=== PATIENT | male | born 1985 | race Caucasian/White ===

== ENCOUNTER 2016-10-24 20:18 | Emergency (ER) | payer BC ==
[~2016-10-24] VITALS: Ht 172.7 cm; Wt 97.7 kg
[2016-10-24 20:21] VITALS: BP 151/87; TEMP 98.4
[2016-10-24] MEDS ORDERED: PRINIVIL20 MG PO (21:45)
[2016-10-24] MEDS ORDERED: HCTZ12.5TAB PO (21:45)
[2016-10-24] MEDS ORDERED: BACTRIM DS 8001 TAB PO (22:04)
[2016-10-24 22:18] VITALS: PULSE 80
== END 2016-10-24 22:18 | disposition home or self-care (01) ==
LOC: COL.ER 20:18
DX: L02.511 Cutaneous abscess of right hand (principal); Z23 Encounter for immunization; I10 Essential (primary) hypertension